=== PATIENT | female | born 1935 | race Asian ===

== ENCOUNTER 2016-06-02 13:50 | Outpatient (RCR) | payer OTHER | END 2016-06-24 | disposition home or self-care (01) | LOC: PTY 13:50 | DX: M25.562 Pain in left knee (principal) ==

== ENCOUNTER 2016-07-17 15:00 | Outpatient (RCR) | payer OTHER | END 2016-07-22 | disposition home or self-care (01) | LOC: PTY 15:00 | DX: M25.562 Pain in left knee (principal) ==

== ENCOUNTER 2016-11-28 11:00 | Outpatient (RCR) | payer OTHER | END 2016-12-22 | disposition home or self-care (01) | LOC: PTY 11:00 | DX: S82.841D Displaced bimalleolar fracture of right lower leg, subsequent encounter for closed fracture with routine healing (principal) | CPT/HCPCS: 29540; 97110; 97140; 97162; G0283 ==

== ENCOUNTER 2017-01-20 15:36 | Outpatient (RCR) | payer OTHER | END 2017-01-22 | disposition home or self-care (01) | LOC: PTY 15:36 | DX: S82.841D Displaced bimalleolar fracture of right lower leg, subsequent encounter for closed fracture with routine healing (principal); X58.XXXD Exposure to other specified factors, subsequent encounter ==

== ENCOUNTER 2017-02-17 14:55 | Outpatient (RCR) | payer OTHER | END 2017-02-21 | disposition home or self-care (01) | LOC: PTY 14:55 | DX: S82.841A Displaced bimalleolar fracture of right lower leg, initial encounter for closed fracture (principal) ==

== ENCOUNTER 2017-06-04 14:30 | Outpatient (RCR) | payer OTHER | END 2017-06-24 | disposition home or self-care (01) | LOC: PTY 14:30 | PROVIDERS: ATTEND Internal Medicine | DX: M51.16 Intervertebral disc disorders with radiculopathy, lumbar region (principal); I10 Essential (primary) hypertension; M17.12 Unilateral primary osteoarthritis, left knee ==

== ENCOUNTER 2017-06-25 14:10 | Outpatient (RCR) | payer OTHER | END 2017-07-22 | disposition home or self-care (01) | LOC: PTY 14:10 | PROVIDERS: ATTEND Internal Medicine | DX: M51.16 Intervertebral disc disorders with radiculopathy, lumbar region (principal); I10 Essential (primary) hypertension; M17.12 Unilateral primary osteoarthritis, left knee ==

== ENCOUNTER 2017-08-18 15:38 | Outpatient (RCR) | payer OTHER | END 2017-08-22 | disposition home or self-care (01) | LOC: PTY 15:38 | PROVIDERS: ATTEND Internal Medicine | DX: M51.16 Intervertebral disc disorders with radiculopathy, lumbar region (principal); I10 Essential (primary) hypertension; M17.12 Unilateral primary osteoarthritis, left knee; G62.9 Polyneuropathy, unspecified; R26.9 Unspecified abnormalities of gait and mobility ==

== ENCOUNTER 2017-08-27 15:10 | Outpatient (RCR) | payer OTHER | END 2017-09-21 | disposition home or self-care (01) | LOC: PTY 15:10 | PROVIDERS: ATTEND Internal Medicine | DX: M51.16 Intervertebral disc disorders with radiculopathy, lumbar region (principal); I10 Essential (primary) hypertension; M17.12 Unilateral primary osteoarthritis, left knee ==

== ENCOUNTER 2017-09-24 14:30 | Outpatient (RCR) | payer OTHER | END 2017-10-22 | disposition home or self-care (01) | LOC: PTY 14:30 | PROVIDERS: ATTEND Internal Medicine | DX: M51.16 Intervertebral disc disorders with radiculopathy, lumbar region (principal) ==

== ENCOUNTER 2017-10-26 15:47 | Outpatient (RCR) | payer OTHER | END 2017-11-21 | disposition home or self-care (01) | LOC: PTY 15:47 | PROVIDERS: ATTEND Internal Medicine | DX: M51.16 Intervertebral disc disorders with radiculopathy, lumbar region (principal) ==